=== PATIENT | male | born 1970 | race Caucasian/White ===

== ENCOUNTER 2017-06-13 10:32 | Day surgery (SDC) | payer OTHER ==
[~2017-06-13 10:32] MED LIST: LIDOCAINE 1% PF 2 ML VIAL. ID; MORPHINE SULFATE 4 MG/ML DISP.SYRIN. IV; ONDANSETRON PF 4 MG/2 ML VIAL. IV; fentaNYL PF VIAL 100 MCG/2 ML VIAL IV
[2017-06-13] MEDS ORDERED: MIDAZOLAM HCL/PF 2 MG/2 ML VIAL. (11:23)
[2017-06-13] MEDS ORDERED: fentaNYL PF VIAL 100 MCG/2 ML VIAL (11:23)
[2017-06-13] MEDS ORDERED: ROCURONIUM 50 MG/5 ML VIAL. (11:23)
[2017-06-13] MEDS ORDERED: PROPOFOL 20 ML IV (11:23)
[2017-06-13] MEDS ORDERED: DEXAMETHASONE SOD PHOS 20 MG/5 ML VIAL. (11:23)
[2017-06-13] MEDS ORDERED: ONDANSETRON PF 4 MG/2 ML VIAL. (11:23)
[2017-06-13] MEDS ORDERED: LIDOCAINE 1% PF 5 ML VIAL. (11:23)
[2017-06-13] MEDS: IV RINGERS,LACTATED 1000ML 1,000 ML IV (11:24)
[2017-06-13] MEDS ORDERED: ceFAZolin 2GM PREMIX 2 GM/50 ML BAG IV (12:00)
[2017-06-13] MEDS: BUPIVACAINE-EPI 0.25%-1:200000 50 ML VIAL. (13:15)
[2017-06-13] MEDS ORDERED: NEOSTIGMINE 10 MG/10 ML VIAL. (13:22)
[2017-06-13] MEDS ORDERED: GLYCOPYRROLATE 1 MG/5 ML VIAL. (13:22)
[2017-06-13] MEDS ORDERED: SEVOFLURANE 61 TO 120 MINUTES. IH (14:07)
[2017-06-13] MEDS: fentaNYL PF VIAL 100 MCG/2 ML VIAL IV ×2 (14:50→15:32)
[2017-06-13] MEDS: PROCHLORPERAZINE 10 MG/2 ML VIAL. IV (14:50)
[2017-06-13] MEDS: oxyCODONE/APAP 5/325 1 TAB TABLET PO (15:33)
== END 2017-06-13 16:36 | disposition home or self-care (01) ==
LOC: SURG 10:32
DX: K40.91 Unilateral inguinal hernia, without obstruction or gangrene, recurrent (principal); I48.91 Unspecified atrial fibrillation; F98.8 Other specified behavioral and emotional disorders with onset usually occurring in childhood and adolescence; Z79.82 Long term (current) use of aspirin; Z79.899 Other long term (current) drug therapy; Z90.49 Acquired absence of other specified parts of digestive tract; Z89.021 Acquired absence of right finger(s); Z98.890 Other specified postprocedural states
CPT/HCPCS: 49651; C1781; J0690; J0780; J1100; J2250; J2405; J2704; J2710; J3010; J3490; J7120